=== PATIENT | female | born 1985 | race Caucasian/White ===

== ENCOUNTER 2017-12-20 19:13 | Outpatient (CLI) | payer MEDICAID ==
[~2017-12-20 19:13] MED LIST: IBUP-1223 PO; OXYC-302 PO
== END 2017-12-20 20:15 | disposition home or self-care (01) ==
LOC: LDOP 19:13
PROVIDERS: ATTEND Obstetrics & Gynecology Female Pelvic Medicine and Reconstructive Surgery
DX: O36.8120 Decreased fetal movements, second trimester, not applicable or unspecified (principal); Z3A.25 25 weeks gestation of pregnancy
CPT/HCPCS: 59025; 99211; G0463

== ENCOUNTER 2019-09-01 12:38 | Emergency (ER) | payer MEDICAID, OTHER ==
[~2019-09-01] VITALS: Ht 170.2 cm; Wt 117.0 kg
--- NOTE | 2019-09-01 13:03 | NUR ---
Pt placed in room, changed, and placed on monitor. Pt complaining of L lower quad abd pain. L lower abd mass visualized. Nontender. Denies N/V/D. Pt states that her BM and flatulus habbits have not changed.
[2019-09-01] MEDS ORDERED: SODIUM CHLORIDE FLUSH 10ML SYR IVF ONE (13:30)
[2019-09-01 13:50] LABS: BASOPHILS # (AUTO) 0.06 x10^3/uL (0-0.1); BASOPHILS % (AUTO) 1 % (0-1); EOSINOPHILS # (AUTO) 0.32 x10^3/uL (0-0.4); EOSINOPHILS % (AUTO) 5 % (1-7); LYMPHOCYTES # (AUTO) 1.93 x10^3/uL (1-3.4); LYMPHOCYTES % (AUTO) 27 % (22-44); MD NO; MEAN CORPUSCULAR HEMOGLOBIN 28.8 pg (27.0-34.8); MEAN CORPUSCULAR HGB CONC 33.3 g/dL (32.4-35.8); MEAN CORPUSCULAR VOLUME 86.6 fL (80-100); MEAN PLATELET VOLUME 9.1 fL (7.4-10.4); MONOCYTES # (AUTO) 0.57 x10^3/uL (0.2-0.8); MONOCYTES % (AUTO) 8 % (2-9); NEUTROPHILS # (AUTO) 4.28 x10^3/uL (1.8-6.8); NEUTROPHILS % (AUTO) 60 % (42-75); PLATELET COUNT 217 x10^3/uL (130-400); RED BLOOD COUNT 4.75 x10^6/uL (3.82-5.3); RED CELL DISTRIBUTION WIDTH 13.1 % (9.6-15.2)
[2019-09-01 13:59] LABS: ALANINE AMINOTRANSFERASE 16 U/L (12-78); ALBUMIN 3.3 g/dL (3.4-5.0); ANION GAP 4 mmol/L (5-15); CALCIUM 8.5 mg/dL (8.5-10.1); CHLORIDE 111 mmol/L (98-107); CREATININE 0.79 mg/dL (0.55-1.02)
[2019-09-01 14:02] LABS: ALKALINE PHOSPHATASE 51 U/L (45-117); BILIRUBIN,TOTAL 0.7 mg/dL (0.2-1.0); TOTAL PROTEIN 6.4 g/dL (6.4-8.2)
[2019-09-01 14:05] LABS: HCG UR SG 1.022 (1.003-1.030); MICROSCOPIC NOT IND
[2019-09-01 14:16] LABS: CULTURE INDICATED? NO
[2019-09-01] MEDS ORDERED: OMNIPAQUE 350 MG/ML, 100ML BOTTLE ONE (15:02)
--- NOTE | 2019-09-01 15:14 | NUR ---
pt back from ct, requesting water, awaiting results until given fluid
--- NOTE | 2019-09-01 15:55 | NUR ---
DC INSTRUCTIONS GIVEN TO PT. PT VERBALIZED UNDERSTANDING. NO DISTRESS OR PAIN AT THIS TIME. IV REMOVED.
[2019-09-01 15:56] VITALS: BP 124/68
== END 2019-09-01 16:00 | disposition home or self-care (01) ==
LOC: ED 12:53
DX: K43.9 Ventral hernia without obstruction or gangrene (principal); K46.9 Unspecified abdominal hernia without obstruction or gangrene; R10.32 Left lower quadrant pain; R05 Cough
CPT/HCPCS: 36415; 71045; 74177; 80053; 81003; 81025; 85025; 99285; Q9967

== ENCOUNTER 2019-09-18 09:04 | Emergency (ER) | payer OTHER ==
[~2019-09-18] VITALS: Ht 170.2 cm; Wt 119.0 kg
--- NOTE | 2019-09-18 10:22 | NUR ---
TO [facility] FROM LOBBY
[2019-09-18 10:33] VITALS: BP 104/60
[2019-09-18 11:13] LABS: BASOPHILS # (AUTO) 0.04 x10^3/uL (0-0.1); BASOPHILS % (AUTO) 1 % (0-1); EOSINOPHILS # (AUTO) 0.23 x10^3/uL (0-0.4); EOSINOPHILS % (AUTO) 3 % (1-7); LYMPHOCYTES # (AUTO) 1.27 x10^3/uL (1-3.4); LYMPHOCYTES % (AUTO) 15 % (22-44); MD NO; MEAN CORPUSCULAR HEMOGLOBIN 28.5 pg (27.0-34.8); MEAN CORPUSCULAR HGB CONC 31.5 g/dL (32.4-35.8); MEAN CORPUSCULAR VOLUME 90.4 fL (80-100); MONOCYTES # (AUTO) 0.51 x10^3/uL (0.2-0.8); MONOCYTES % (AUTO) 6 % (2-9); NEUTROPHILS # (AUTO) 6.52 x10^3/uL (1.8-6.8); NEUTROPHILS % (AUTO) 76 % (42-75); PLATELET COUNT 253 x10^3/uL (130-400); RED BLOOD COUNT 5.26 x10^6/uL (3.82-5.3); RED CELL DISTRIBUTION WIDTH 14.2 % (9.6-15.2)
--- NOTE | 2019-09-18 11:21 | NUR ---
labs pending, plan us. unable to palpate hernia, pain in llq. call tian in reach. as
[2019-09-18 11:23] LABS: ALBUMIN 3.4 g/dL (3.4-5.0); ANION GAP 6 mmol/L (5-15); CALCIUM 8.5 mg/dL (8.5-10.1); CHLORIDE 110 mmol/L (98-107); CREATININE 0.79 mg/dL (0.55-1.02)
--- NOTE | 2019-09-18 12:08 | NUR ---
recheck. nad. as
== END 2019-09-18 13:03 | disposition home or self-care (01) ==
LOC: ED 12:21
DX: K43.9 Ventral hernia without obstruction or gangrene (principal); Z87.891 Personal history of nicotine dependence
CPT/HCPCS: 36415; 76705; 80048; 82040; 83605; 85025; 99284

== ENCOUNTER 2020-01-03 20:36 | Emergency (ER) | payer OTHER ==
[~2020-01-03] VITALS: Ht 172.7 cm; Wt 116.5 kg
[2020-01-03] MEDS ORDERED: ACETAMINOPHEN 500 MG TABLET ONE (21:00)
[2020-01-03] MEDS ORDERED: ACETAMINOPHEN 500 MG TABLET PO ONE (21:00)
--- NOTE | 2020-01-03 21:02 | NUR ---
PT REPORTS LEFT LOWER LEG SWELLING, ERYTHEMA AND MASS X3 DAYS. DENIES HX OF BLOOD CLOTS OR DIABETES. PT UPDATED ON POC, MEDICATED PER MAR, MONITORING IN PLACE, CALL LIGHT WITHIN REACH, ALL SAFETY MEASURES IN PLACE.
--- NOTE | 2020-01-03 21:46 | NUR ---
US AT BS.
[2020-01-03 21:57] VITALS: BP 102/47
[2020-01-03] MEDS ORDERED: SULFAMETH./TRIMETHOPRIM DS 800MG/160MG TABLET ONE (22:14)
[2020-01-03] MEDS ORDERED: CEPHALEXIN 500 MG CAPSULE ONE (22:14)
[2020-01-03] MEDS ORDERED: SULFAMETH./TRIMETHOPRIM DS 800MG/160MG TABLET PO ONE (22:30)
[2020-01-03] MEDS ORDERED: CEPHALEXIN 500 MG CAPSULE PO ONE (22:30)
== END 2020-01-03 22:27 | disposition home or self-care (01) ==
LOC: ED 21:49
DX: I80.02 Phlebitis and thrombophlebitis of superficial vessels of left lower extremity (principal); L03.115 Cellulitis of right lower limb; Z87.891 Personal history of nicotine dependence
CPT/HCPCS: 99284